=== PATIENT | male | born 1990 | race Asian ===

== ENCOUNTER 2020-05-12 14:18 | Emergency (ER) | payer OTHER ==
[2020-05-12 14:40] VITALS: BP 129/73
--- NOTE | 2020-05-12 14:54 | ED Physician Documentation ---
PD HPI UPPER EXT INJURY - Stated complaint Stated Complaint: LT FINGER LAC - Chief complaint Chief Complaint: Laceration - History obtained from History obtained from: Patient - History of Present Illness Location: Left, Finger (index) Type of injury: Laceration Where injury occurred: Home Timing - onset: How many hours ago (1) Timing - duration: Hours (1) Timing - details: Abrupt onset Pain level max: 4 Pain level now: 2 Improved by: Rest Worsened by: Moving, Palpating Associated symptoms: No: Weakness, Numbness, Tingling, Swelling Contributing factors: No: Anticoagulated Recently seen: Not recently seen - Additonal information Additional information: pt is right handed. Td UTD Review of Systems Constitutional: denies: Fever, Chills GI: denies: Vomiting Skin: denies: Rash Musculoskeletal: denies: Neck pain, Back pain Neurologic: denies: Headache PD PAST MEDICAL HISTORY - Past Medical History Past Medical History: No - Past Surgical History Past Surgical History: No - Allergies Allergies/Adverse Reactions: Allergies Allergy/AdvReac Type Severity Reaction Status Date / Time No Known Drug Allergies Allergy Verified 05/12/20 14:36 PD ED PE NORMAL - Vitals Vital signs reviewed: Yes - General General: Alert and oriented X 3, No acute distress - HEENT HEENT: Moist mucous membranes - Neck Neck: Supple, no meningeal sign - Derm Derm: Warm and dry - Neuro Neuro: Alert and oriented X 3 PD ED PE EXPANDED - Extremities ETIENNE UE/Hands Visual: 1 - laceration (0.1cm skin avulsion, nail involved. NVI.) Results - Vitals Vitals: Vital Signs - 24 hr 05/12/20 14:36 Temperature 37.1 C Heart Rate 68 Respiratory 16 Rate Blood Pressure 129/73 O2 Saturation 98 Oxygen O2 Source Room air Procedures - Laceration (location) L index finger Length in cm: 0.1 Wound type: Superficial, Clean, Other (avulsion) Neurovascular status: Sensory intact, Motor intact, Vascular intact Tendon involvement: Tendon intact Wound Preparation: Irrigated copiously NS, Other (finger tourniquet) Skin layer closure: Dermabond Other: Patient tolerated well, No complications, Neurovascular intact, Dressing applied, Tetanus UTD Complexity: Simple PD MEDICAL DECISION MAKING - ED course Complexity details: considered differential, d/w patient ED course: Patient with a small skin avulsion to the left index finger. Finger tourniquet was applied, Dermabond was used to achieve hemostasis. No further bleeding. Tetanus up-to-date. Warnings of infection and instructions on wound care given at bedside. Also counseled on how to minimize scarring. Patient counseled regarding signs and symptoms for which I believe and urgent re-evaluation would be necessary. Patient with good understanding of and agreement to plan and is comfortable going home at this time This document was made in part using voice recognition software. While efforts are made to proofread this document, sound alike and grammatical errors may occur. Departure - Departure Disposition: 01 Home, Self Care Clinical Impression: Avulsion of skin of finger Qualifiers: Encounter type: initial encounter Qualified Code(s): S61.209A - Unspecified open wound of unspecified finger without damage to nail, initial encounter Condition: Good Instructions: ED Laceration Hand Follow-Up: MALIA GONZALES MD [Primary Care Provider] - Within 1 week Comments: Follow-up with your doctor in 1 week for a wound check. Return if you worsen including increasing redness, swelling or drainage from the wound. The glue will dissolve on its own. Do not apply any antibiotic ointment as this may dissolve the glue.
== END 2020-05-12 14:57 | disposition home or self-care (01) ==
LOC: ED 14:18
DX: S61.311A Laceration without foreign body of left index finger with damage to nail, initial encounter (principal); W26.0XXA Contact with knife, initial encounter; Y93.G1 Activity, food preparation and clean up; Y92.009 Unspecified place in unspecified non-institutional (private) residence as the place of occurrence of the external cause
CPT/HCPCS: 12001; 99281; 99282